=== PATIENT | female | born 1995 | race Caucasian/White ===

== ENCOUNTER 2017-01-12 10:39 | Emergency (ER) ==
[2017-01-12 10:47] VITALS: BMI 31.9
[2017-01-12 11:15] LABS: BILIRUBIN,URINE Negative (NEGATIVE); KETONES,URINE Trace (NEGATIVE); LEUKOCYTE ESTERASE ,URINE 1+ (NEGATIVE); NITRITE,URINE Positive (NEGATIVE); PROTEIN,URINE 1+ (NEGATIVE); URINE, BLOOD 3+ (NEGATIVE)
[2017-01-12 11:19] LABS: ADD URINE MICROSCOPIC YES; URINE PREGNANCY INTERNAL QC INTERNAL QC VALID
[2017-01-12 11:20] LABS: BACTERIA,URINE 4+ (NOT PRESENT)
[2017-01-12 11:21] LABS: BASOPHILS % (AUTO) 0.5 % (0.0-3.0); EOSINOPHILS # (AUTO) 0.2 K/ul (0.0-0.7); EOSINOPHILS % (AUTO) 2.4 % (0.0-7.0); IMMATURE GRANULOCYTE % (AUTO) 0.4 % (0.0-5.0); LYMPHOCYTES # (AUTO) 1.8 K/uL (0.60-3.4); LYMPHOCYTES % (AUTO) 21.5 (10.0-50.0); MEAN CORPUSCULAR HEMOGLOBIN 27.3 pg (27.0-31.0); MEAN CORPUSCULAR HGB CONC 33.3 (31.8-35.4); MEAN CORPUSCULAR VOLUME 81.8 fl (81.0-99.0); MONOCYTES # (AUTO) 0.6 K/uL (0.4-2.0); MONOCYTES % (AUTO) 7.5 (0-10); NEUTROPHILS # (AUTO) 5.6 K/ul (2.0-6.9); NEUTROPHILS % (AUTO) 67.7; PLATELET COUNT 267 10^3/uL (140-440); WHITE BLOOD COUNT 8.23 K/ul (4.6-10.2)
[2017-01-12 11:28] LABS: COCAIN SCREEN,URINE NEGATIVE (NEGATIVE)
--- NOTE | 2017-01-12 11:40 | ED.PDOC ---
General ED Provider: Dr. KERMIT MEYERS Chief Complaint: Psychiatric Complaint Stated Complaint: Feeling like hurting herself, depressed,. had breakup, no where to go/ Time Seen by Physician: 11:38 Mode of Arrival: Walk-In Information Source: Patient Nursing and Triage Documentation Reviewed and Agree: Yes Psychological Complaint Exam - Psychiatric Complaint/Exam Patient Complains Of: Present: Depression, Suicidal thoughts Symptoms Are: Still present Timing: Constant Episodes Lasting: Hours Initial Severity: Moderate Current Severity: Moderate Character: Present: Depressed Aggravating: Reports: Recent stress Associated Signs And Symptoms: Reports: Sleep disturbance, Appetite change. Denies: Hostile, Confused, Hallucinating, Paranoid behavior Related History: Reports: Suicidal thoughts, Suicidal plan, Prior attempts, Recent stressors Completed Suicide Risk Factors: None Patient In Custody Of Police: No Social Withdrawal Present: Yes Social Isolation Present: No Prior Suicide Attempt: Yes Injury From Prior Suicide Attempt: No Related Surgical History: Reports: None Patient Uncooperative For Exam: No Mood: Present: Depressed, Angry Appearance: Present: Unkempt, Poor hygiene Thought Process: Present: Logical Insight: Present: Good Memory: Intact Judgement: Normal Danger To Others: No Differential Diagnoses: Depression, Suicidal Ideation Review of Systems - Review Of Systems Constitutional: Reports: No symptoms Eyes: Reports: No symptoms Ears, Nose, Mouth, Throat: Reports: No symptoms Respiratory: Reports: No symptoms Cardiac: Reports: No symptoms GI: Reports: No symptoms : Reports: No symptoms Musculoskeletal: Reports: No symptoms Skin: Reports: No symptoms Neurological: Reports: Anxiety, Depressed, Emotional problems Endocrine: Reports: No symptoms Hematologic/Lymphatic: Reports: No symptoms All Other Systems: Reviewed and Negative Past Medical History - Past Medical History Previously Healthy: Yes Endocrine: Reports: None Cardiovascular: Reports: None Respiratory: Reports: None Hematological: Reports: None Gastrointestinal: Reports: None Genitourinary: Reports: None Neuro/Psych: Reports: Anxiety, Depression Musculoskeletal: Reports: None Cancer: Reports: None Last Menstrual Period: 2 months - Surgical History General Surgical History: Reports: None - Family History Family History: Reports: None - Social History Smoking Status: Former smoker Hx Substance Use: Yes Alcohol Screening: None - Immunizations Tetanus Shot up to Date: Yes Physical Exam - Physical Exam Appearance: Well-appearing, No pain distress, Well-nourished Eyes: KAREN, EOMI, Conjunctiva clear ENT: Ears normal, Nose normal, Oropharynx normal Respiratory: Airway patent, Breath sounds clear, Breath sounds equal, Respirations nonlabored Cardiovascular: RRR, Pulses normal, No rub, No murmur GI/: Soft, Nontender, No masses, Bowel sounds normal, No Organomegaly Musculoskeletal: Normal strength, ROM intact, No edema, No calf tenderness Skin: Warm, Dry, Normal color Neurological: Sensation intact, Motor intact, Reflexes intact, Cranial nerves intact, Alert, Oriented Psychiatric: Affect appropriate, Mood appropriate Critical Care Note - Critical Care Note Total Time (mins): 0 Course - Course Hematology/Chemistry: 01/12/17 11:15 01/12/17 11:15 Orders, Labs, Meds: Lab Review 01/12/17 01/12/17 01/12/17 10:55 10:55 10:55 WBC RBC Hgb Hct MCV MCH MCHC RDW Coeff of Lupe Plt Count Immature Gran % (Auto) Neut % (Auto) Lymph % (Auto) [place] % (Auto) Eos % (Auto) Baso % (Auto) Immature Gran # (Auto) Neut # Lymph # [place] # Eos # Baso # Sodium Potassium Chloride Carbon Dioxide Anion Gap BUN Creatinine Estimated GFR (MDRD) BUN/Creatinine Ratio Glucose Calcium Total Bilirubin AST ALT Alkaline Phosphatase Total Protein Albumin Globulin Albumin/Globulin Ratio TSH Urine Color Yellow Urine Clarity Cloudy Urine pH 6.0 Ur Specific [place] 1.025 Urine Protein 1+ Urine Glucose (UA) Negative Urine Ketones Trace Urine Blood 3+ Urine Nitrite Positive Urine Bilirubin Negative Urine Urobilinogen 1.0 Ur Leukocyte Esterase 1+ Urine Microscopic RBC 5-10 Urine Microscopic WBC 10-20 Ur Squamous Epith Cells 5-10 Urine Bacteria 4+ Urine Test Negative Salicylate Level mg/dL Urine Opiates Screen Negative Ur Oxycodone Screen Negative Urine Methadone Screen Negative Ur Propoxyphene Screen Negative Acetaminophen Ur Barbiturates Screen Negative U Tricyclic Antidepress Negative Ur Phencyclidine Scrn Negative Ur Amphetamine Screen Negative U Methamphetamines Scrn Negative U Benzodiazepines Scrn Negative Urine Cocaine Screen Negative U Cannabinoids Screen Negative 01/12/17 01/12/17 11:15 11:15 WBC 8.23 RBC 4.40 Hgb 12.0 Hct 36.0 L MCV 81.8 MCH 27.3 MCHC 33.3 RDW Coeff of Lupe 13.5 Plt Count 267 Immature Gran % (Auto) 0.4 Neut % (Auto) 67.7 Lymph % (Auto) 21.5 [place] % (Auto) 7.5 Eos % (Auto) 2.4 Baso % (Auto) 0.5 Immature Gran # (Auto) 0.0 Neut # 5.6 Lymph # 1.8 [place] # 0.6 Eos # 0.2 Baso # 0.0 Sodium 138 Potassium 3.7 Chloride 107 Carbon Dioxide 22 Anion Gap 12.7 BUN 8 Creatinine 0.60 Estimated GFR (MDRD) 127.00 BUN/Creatinine Ratio 13.33 Glucose 98 Calcium 9.3 Total Bilirubin 0.36 AST 29 ALT 40 Alkaline Phosphatase 69 Total Protein 6.9 Albumin 3.4 Globulin 3.5 Albumin/Globulin Ratio 0.97 TSH 0.417 Urine Color Urine Clarity Urine pH Ur Specific [place] Urine Protein Urine Glucose (UA) Urine Ketones Urine Blood Urine Nitrite Urine Bilirubin Urine Urobilinogen Ur Leukocyte Esterase Urine Microscopic RBC Urine Microscopic WBC Ur Squamous Epith Cells Urine Bacteria Urine Test Salicylate Level mg/dL < 5.0 Urine Opiates Screen Ur Oxycodone Screen Urine Methadone Screen Ur Propoxyphene Screen Acetaminophen < 3 L Ur Barbiturates Screen U Tricyclic Antidepress Ur Phencyclidine Scrn Ur Amphetamine Screen U Methamphetamines Scrn U Benzodiazepines Scrn Urine Cocaine Screen U Cannabinoids Screen Orders Category Date Time Status ACETAMINOPHEN Stat LAB 01/12/17 11:15 Completed CBC W/ AUTO DIFF Stat LAB 01/12/17 11:15 Completed COMPREHENSIVE METABOLIC PANEL Stat LAB 01/12/17 11:15 Completed DRUG SCREEN, URINE, RAPID Stat LAB 01/12/17 10:55 Completed SALICYLATE Stat LAB 01/12/17 11:15 Completed THYROID STIMULATING HORMONE Stat LAB 01/12/17 11:15 Completed URINALYSIS C & S IF INDICATED Stat LAB 01/12/17 10:55 Completed URINE CULTURE Stat LAB 01/12/17 10:55 Received URINE Stat LAB 01/12/17 10:55 Completed Vital Signs: Temp Pulse Resp BP Pulse Ox 01/12/17 10:40 98.1 F 86 16 133/81 96 Departure - Departure Time of Disposition: 15:36 Disposition: TSF OTHER Discharge Problem: Suicidal behavior Instructions: Suicide Prevention for Adults (ED) Condition: Stable Pt referred to PMD for follow-up: Yes Additional Instructions: Mental health worker talking to patient she is been stable here stable for transfer. Allergies/Adverse Reactions: Allergies adhesive Adverse Reaction (Verified 01/12/17 10:55) latex Adverse Reaction (Verified 01/12/17 10:55) sertraline [From Zoloft] Adverse Reaction (Verified 01/12/17 10:55) Home Medications: Ambulatory Orders 1 [No Reported Medications] 01/12/17 Disposition Discussed With: Patient Discharge Problem: Suicidal behavior Qualifiers: Attempted self-injury: without attempted self-injury Qualified Code(s): R46.89 - Other symptoms and signs involving appearance and behavior
[2017-01-12 11:58] LABS: ACETAMINOPHEN < 3 ug/ml (10-30); ALANINE AMINOTRANSFERASE 40 U/L (12-78); ALBUMIN 3.4 g/dL (3.4-5.0); ALBUMIN/GLOBULIN RATIO 0.97; ALKALINE PHOSPHATASE 69 U/L (42-98); ANION GAP 12.7; ASPARTATE AMINO TRANSFERASE 29 U/L (15-37); BILIRUBIN,TOTAL 0.36 mg/dL (0.00-1.20); BLOOD UREA NITROGEN 8 mg/dL (7-18); BUN/CREATININE RATIO 13.33; CALCIUM 9.3 mg/dL (8.2-10.2); CARBON DIOXIDE 22 mmol/L (21-32); CHLORIDE 107 mmol/L (98-107); GLUCOSE 98 mg/dL (70-110); POTASSIUM 3.7 mmol/L (3.5-5.10); SALICYLATE < 5.0 mg/dL (2.8-20.0); SODIUM 138 mmol/L (136-145); TOTAL PROTEIN 6.9 g/dL (6.4-8.2)
[2017-01-12 20:13] VITALS: BP 126/76; TEMP 98.3
== END 2017-01-12 20:00 | disposition short-term general hospital (02) ==
LOC: ED 10:39
DX: R45.851 Suicidal ideations (principal); R46.89 Other symptoms and signs involving appearance and behavior
CPT/HCPCS: 36415; 80053; 80306; 80307; 81001; 81025; 84443; 85025; 87086; 87186; 99285